=== PATIENT | female | born 1995 | race Caucasian/White ===

== ENCOUNTER 2017-02-09 16:23 | Emergency (ER) | payer OTHER ==
[~2017-02-09] VITALS: Ht 165.1 cm; Wt 83.9 kg
[~2017-02-09 16:23] MED LIST: BIRTH CONTROL; NORCO 5-325 TA1 EACH PO; NORCO 7.5/325 T1 TAB PO
== END 2017-02-09 20:22 ==
LOC: EDMED 16:23
DX: G44.209 Tension-type headache, unspecified, not intractable (principal); F17.200 Nicotine dependence, unspecified, uncomplicated
CPT/HCPCS: J0780; J1200; J1885; J7030